=== PATIENT | male | born 1970 | race Caucasian/White ===

== ENCOUNTER 2021-01-05 21:27 | Emergency (ER) | payer OTHER, SELFPAY ==
[2021-01-05 21:42] VITALS: BP 128/81; PULSE 98; RESP 14; TEMP 36.7; O2SAT 100; BMI 19.8
--- NOTE | 2021-01-05 23:01 | W.ED.FALL ---
HPI - Fall General: Chief Complaint: Fall Stated Complaint: fall, back pain Time Seen by Provider: 01/05/21 23:00 History of Present Illness: HPI Narrative: 50-year-old male patient comes in today with complaints of right lower back pain. Patient reports 1 week ago he had fallen and injured his back. Patient states that he has been evaluated at [place] emergency room and the emergency room in [facility]. Patient states that he had a CT and MRI done at those facilities and the ones facility that showed a CT stated he had some bulging disc. Patient seems slightly sedated in the emergency room and at times has difficulty recalling events. When asked patient has taken some medication he did state that he has been on some Flexeril and other medication for pain. Patient appears well. Patient appears no acute distress. Review of Systems General: Reports: 10 or more systems reviewed and unremarkable except in HPI and below Musc: Reports: back pain Physical Exam Const: COMMON NORMALS: no acute distress and patient oriented x3 GENERAL APPEARANCE: cooperative HENMT: COMMON NORMALS: normocephalic and Normal external nose present HEAD & SCALP: normal to inspection and normocephalic NOSE: Normal external nose present Eye: GENERAL EYE: appearance normal, both eyes and all related structures Neck/C-Spine: COMMON NORMALS: full ROM Lymph: LYMPHATIC: no lymphadenopathy noted Chest: COMMONS NORMALS: normal inspection of the chest Resp: COMMON NORMALS: normal respiratory effort EFFORT & INSPECTION: Yes able to speak in complete sentences Cardio: COMMON NORMALS: regular rate and regular rhythm RATE: regular rate RHYTHM: regular rhythm GI: COMMON NORMALS: non-tender Back/Pelvis: THORACIC SPINE/UPPER BACK: Yes normal to inspection and No paraspinal muscle tenderness LUMBAR SPINE/LOWER BACK: Yes paraspinal muscle tenderness Lumbar paraspinal muscle tenderness: right Extremity: COMMON NORMALS: normal to inspection Neuro: COMMON NORMALS: patient oriented x3 and moves all extremities Psych: COMMON NORMALS: mental status grossly normal and cooperative Skin: COMMON NORMALS: no rashes or lesions noted GENERAL SKIN EXAM: no rashes or lesions noted Course Vital Signs: Vital signs: Vital Signs Temperature 98.1 F 01/05/21 21:42 Pulse Rate 97 01/05/21 23:04 Respiratory Rate 12 01/05/21 23:04 Blood Pressure 125/72 01/05/21 23:04 Pulse Oximetry 99 01/05/21 23:04 MDM - Fall MDM Narrative: Medical decision making narrative: 50-year-old male patient comes in with low back pain. Patient reports falling 1 week ago. Patient reports worsening back pain. On exam patient has tenderness in the right lower lumbar paraspinous muscles. No obvious central spinal tenderness is noted. Differential diagnosis includes vertebral fracture, intervertebral disc disease, facet arthropathy. X-ray of the spine no obvious fracture was noted, significant degenerative disc disease was noted in the lumbar spine. Reviewed this with patient. Patient has no sign of cauda equina syndrome at this time. Recommend follow-up with primary care for further evaluation and treatment. Recommend pain management for pain control. Patient was given a dose of Toradol and 1 hydrocodone tablet in the emergency room. Patient reported understanding. Discharge Plan Discharge Patient Disposition: Home Clinical Impression: Lumbar back pain Intervertebral disc degeneration Qualifiers: Spinal region: lumbar Qualified Code(s): M51.36 - Other intervertebral disc degeneration, lumbar region Condition: Stable Prescriptions: New hydrocodone-acetaminophen 5-325 mg tablet 1 tab PO Q6H PRN (Reason: pain) Qty: 7 RF: 0 Discharge Orders: Discharge ED (Routine); Ordered 01/05/21 Ordered By: Alf Mcdaniel Discharge Diet: Usual diet Discharge Activity: Increase activity as tolerated Patient Instructions: Chronic Back Pain (ED), Opioid Safety Activity Restrictions/Additional Instructions: Home and rest. Activity as tolerated. Is important to stay as active as she can. Follow-up with primary care. You need to continue treatment with primary care for further evaluation and medications. This is going to be a chronic problem and it needs to be managed by a primary care provider and specialist. Return to the emergency department for new concerns. Coding Level of Care Code ED [employer] for Chg Fwd Exam Comprehensive
[2021-01-05 23:04] VITALS: BP 125/72; PULSE 97; RESP 12; O2SAT 99
--- NOTE | 2021-01-05 23:20 | XRR_ITS ---
PROCEDURE INFORMATION: Exam: XR Lumbosacral Spine Exam date and time: 01/05/2021 11:20 PM Age: 50 years old Clinical indication: Injury or trauma; Blunt trauma (contusions or hematomas); Patient HX: Fall one week ago. C/O worsening back pain. Patient unable to tolerate positioning very well. Best films obtained. TECHNIQUE: Imaging protocol: XR of the lumbosacral spine. Views: 2 or 3 views. COMPARISON: CR Lumbar Spine Flex/Extens [id number] 07/08/2015 5:21 PM FINDINGS: Bones/joints: There are mild but stable degenerative changes present. Normal alignment. No acute fractures. Soft tissues: Unremarkable. XR/XR lumbar spine 2-3V* [id number] IMPRESSION: No acute injury.
[2021-01-05] MEDS: ketorolac 30 mg/mL INJ IM (23:22)
== END 2021-01-06 00:01 | disposition home or self-care (01) ==
PROVIDERS: Emergency Provider Nurse Practitioner Family
DX: M51.36 Other intervertebral disc degeneration, lumbar region (principal)
CPT/HCPCS: 72100; 96372; 99283; J1885